=== PATIENT | female | born 1970 | race Caucasian/White ===

== ENCOUNTER → 2024-03-10 08:44 | Outpatient (REF) | payer OTHER, SELFPAY ==
[2024-03-10 16:01] LABS: Varicella Zoster IgG (VZV) Positive
== END ==
LOC: OHS 08:44
PROVIDERS: ATTENDING PHYSICIAN Nurse Practitioner Family
DX: Z23 Encounter for immunization (principal)
CPT/HCPCS: 36415; 86480; 86787

== ENCOUNTER → 2025-05-01 08:03 | Outpatient (REF) | payer OTHER, SELFPAY | LOC: HWRCS 08:03 | PROVIDERS: ATTENDING PHYSICIAN Internal Medicine Interventional Cardiology; FAMILY PHYSICIAN Family Medicine | DX: I10 Essential (primary) hypertension (principal); E78.2 Mixed hyperlipidemia; E66.01 Morbid (severe) obesity due to excess calories; Z72.0 Tobacco use; R73.09 Other abnormal glucose; R42 Dizziness and giddiness; R06.09 Other forms of dyspnea | CPT/HCPCS: 93306 ==